=== PATIENT | male | born 1935 | race Caucasian/White ===

== ENCOUNTER 2018-03-05 14:14 | Emergency (ER) | payer BC, OTHER ==
--- NOTE | 2018-03-05 14:44 | CPEKG ---
Heart Rate: 61 RR Interval: 984 P-R Interval: 184 QRSD Interval: 146 QT Interval: 480 QTC Interval: 484 P [place]: 61 QRS [place]: 269 T Wave [place]: 78 EKG Severity - ABNORMAL ECG - EKG Impression: A-V DUAL-PACED RHYTHM WITH SOME INHIBITION Electronically Signed By: Jin Sahu 05-Mar-2018 20:51:03
--- NOTE | 2018-03-05 15:03 | EDPHY ---
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 BPH - Social History Smoking Status: Never smoked Constitutional: Initial Vital Signs Temperature (C) 36.6 C 03/05/18 14:15 Heart Rate 72 03/05/18 14:15 Respiratory Rate 18 03/05/18 14:15 Blood Pressure 174/112 H 03/05/18 14:15 O2 Sat (%) 95 03/05/18 14:15 O2 Delivery Mode Room Air Allergies/Adverse Reactions: No Known Allergies Allergy (Unverified 03/05/18 14:24) Home Medications: Medication Instructions Recorded Tamsulosin HCl [Flomax 0.4 MG (*)] 0.4 mg PO 03/05/18 Medical Decision Making - Diagnostics Imaging Results: Imaging Impressions Head CT 03/05/18 14:55 Impression: 1. No acute intracranial findings. 2. Diffuse cerebral atrophy with periventricular and subcortical low attenuation consistent with chronic microvascular ischemic gliosis. 3. Posterior right frontal calcified extra-axial mass consistent with a meningioma. Findings discussed with Dr. Jin Sahu on March 05, 2018 at 1627 hours. Head CTA 03/05/18 14:55 Impression: 1. 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 2. Mild to moderate atherosclerosis of the left carotid bifurcation without significant stenosis. 3. Posterior right frontal meningioma without significant mass effect with underlying atrophy. 4. Additional findings as above. Stenoses are calculated using [place] Symptomatic Carotid Endarterectomy Trial (NASCET) criteria. Neck CTA 03/05/18 14:55 Impression: 1. 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 2. Mild to moderate atherosclerosis of the left carotid bifurcation without significant stenosis. 3. Posterior right frontal meningioma without significant mass effect with underlying atrophy. 4. Additional findings as above. Stenoses are calculated using [place] Symptomatic Carotid Endarterectomy Trial (NASCET) criteria. 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 He also has a bovine heart valve. This patient has refused anticoagulation and antiplatelet medicine for several years. This patient states that recently had a workup and was found to have a 70% stenosis in 1 of his carotid arteries which he thinks is on the left. The other 1 is 30% stenosis. His doctor thought that most likely he was initiating a plaque from the carotid arteries. He also is AV paced. This patient is always somewhat off balance but over the last 2 days since he has arrived from [facility] he has been more off balance and more dizzy and weak. He also noticed that his blood pressure is a little bit higher than usual. He denies a headache. But he states that he has been labile emotionally and has been crying for no reason. REVIEW OF SYSTEMS: A 10 point review of systems was performed and is negative with the exception of the elements mentioned in the history of present illness. PHYSICAL EXAM: HR, BP, O2 Sat, RR. Temp noted General Appearance: Alert, well hydrated, appropriate, and non-toxic appearing. Head: Atraumatic without scalp tenderness or obvious injury Eyes: Pupils equal, round, reactive to light and accommodation, EOMI, no trauma , no injection. Ears: Clear bilaterally, no perforation, normal landmarks Nose: Atraumatic, no rhinorrhea, clear. Throat: There is no erythema or exudates, no lesions, normal tonsils, mucus membranes moist. Neck: Supple, 2+ carotid upstroke, nontender, no lymphadenopathy. Respiratory: No retractions, no distress, no wheezes, and no accessory muscle use. Lungs are clear to auscultation bilaterally. Cardiovascular: Regular rate and rhythm, no murmurs, rubs, or gallops. Bilateral carotid, radial, dorsalis pedis, and posterior tibial pulses intact. Good capillary refill all extremities. Gastrointestinal: Abdomen is soft, nontender, non-distended, no masses, no rebound, no guarding, no peritoneal signs. Musculoskeletal: Normal active ROM of all extremities, atraumatic. Neurological: Alert, appropriate, and interactive. The patient has normal DTRs and non-focal cranial nerves, motor, sensory, and patient feels like it is mostly normal since he is usually off balance but he always uses walking assistance. Skin: No rashes, good turgor, no nodules on palpation. 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 Denies tobacco use. Retired. DIAGNOSTICS/PROCEDURES/CRITICAL CARE TIME: The 12 lead EKG was interpreted by myself. See hard copy and/or "tracemaster" electronic copy for interpretation. AV paced rhythm. Study: CT of the brain without, CT angiography head and neck Indication: Stroke-like symptoms in a patient who has a pacemaker Results: CT scan of the body parts was obtained. The results of the study are normal on CT. CTA shows that he is congenitally missing his right internal carotid artery. He has plaques in his posterior bilateral arteries and anterior right artery. The study was read by the radiologist, Dr. Parada. DIFFERENTIAL DIAGNOSIS: The differential diagnosis for the patient's neurologic deficits included but was not limited to peripheral causes, central causes including CVA, TIA, electrolyte abnormalities and dehydration, cardiogenic causes, atypical causes like migraine syndrome. MEDICAL DECISION MAKING: I am significantly concerned that this patient has had another TIA or stroke in the cerebellar area. He has had some dizziness. In addition he has had some trouble recently with transient blindness and his doctor attributed the blindness to a TIA from his carotid plaques. Additionally , he has a heart valve and he is not anticoagulated nor is he on antiplatelet agents. At the patient's choice. CT scan laboratory studies are pending including electrolytes and urinalysis to rule out other causes of dizziness. This patient's symptom exacerbation beyond his usual balance symptoms including most recent dizziness has been present for at least 2 days if not longer when he is back in [place]. 3:30 PM - The urinalysis is not indicative of an infection. Labs are not indicative of an electrolyte abnormality or other source for the patient's symptoms. The patient's POC creatinine is within the normal range. CT angiography will also be performed for further evaluation of the symptoms. 5:00 PM - Due to his congenitally missing right carotid artery and plaque build up in remaining arteries he shoulder be anticoagulated. Likely he is currently having a TIA. I reassessed the patient and informed him of the results of the workup. I advise admission but he adamantly refused, stating he has had this workup before and will not start taking medication. 5:15 PM - I spoke with the patient's physician at [facility], Dr. Jo Rausch , regarding this patient. He agrees the patient should be taking at least an aspirin a day and should be admitted for further workup. I relayed this information to the patient who continues to refuse admission but agreed to take a single aspirin a day. - Data Points Laboratory Results: Laboratory Results 03/05/18 15:10 03/05/18 15:10 03/05/18 03/05/18 03/05/18 15:20 15:19 15:10 WBC RBC Hgb POC Hgb 13.3 gm/dL L gm/dL (13.7-17.5) Hct POC Hct 39 % L % (40-51) MCV MCH MCHC RDW Plt Count MPV Neut % (Auto) Lymph % (Auto) [place] % (Auto) Eos % (Auto) Baso % (Auto) Nucleat RBC Rel Count Absolute Neuts (auto) Absolute Lymphs (auto) Absolute Monos (auto) Absolute Eos (auto) Absolute Basos (auto) Absolute Nucleated RBC Immature Gran % Immature Gran # POC Sodium 139 mEq/L mEq/L (135-145) Sodium 141 mEq/L mEq/L (135-145) POC Potassium 4.4 mEq/L mEq/L (3.3-5.0) Potassium 4.7 mEq/L mEq/L (3.3-5.0) POC Chloride 101 mEq/L mEq/L (97-110) Chloride 103 mEq/L mEq/L (97-110) Carbon Dioxide 26 mEq/l mEq/l (22-31) Anion Gap 12 mEq/L mEq/L (8-16) POC BUN 18 mg/dL mg/dL (7-23) BUN 19 mg/dL mg/dL (7-23) Creatinine 1.0 mg/dL mg/dL (0.7-1.3) POC Creatinine 1.2 mg/dL mg/dL (0.7-1.3) Estimated GFR > 60 Glucose 83 mg/dL mg/dL (70-100) POC Glucose 91 mg/dL mg/dL (70-100) Calcium 10.0 mg/dL mg/dL (8.5-10.4) Urine Color PALE YELLOW Urine Appearance CLEAR Urine pH 7.0 (5.0-7.5) Ur Specific [place] 1.004 (1.002-1.030) Urine Protein NEGATIVE (NEGATIVE) Urine Ketones NEGATIVE (NEGATIVE) Urine Blood NEGATIVE (NEGATIVE) Urine Nitrate NEGATIVE (NEGATIVE) Urine Bilirubin NEGATIVE (NEGATIVE) Urine Urobilinogen NEGATIVE EU EU (0.2-1.0) Ur Leukocyte Esterase NEGATIVE (NEGATIVE) Urine RBC 1-3 /hpf /hpf (0-3) Urine WBC 1-3 /hpf /hpf (0-3) Ur Epithelial Cells NONE SEEN /lpf /lpf (NONE-1+) Urine Mucus TRACE /lpf /lpf (NONE-1+) Urine Glucose NEGATIVE (NEGATIVE) 03/05/18 15:10 WBC 4.63 10^3/uL 10^3/uL (3.80-9.50) RBC 4.02 10^6/uL L 10^6/uL (4.40-6.38) Hgb 12.8 g/dL L g/dL (13.7-17.5) POC Hgb Hct 39.5 % L % (40.0-51.0) POC Hct MCV 98.3 fL fL (81.5-99.8) MCH 31.8 pg pg (27.9-34.1) MCHC 32.4 g/dL g/dL (32.4-36.7) RDW 14.8 % % (11.5-15.2) Plt Count 168 10^3/uL 10^3/uL (150-400) MPV 11.5 fL fL (8.7-11.7) Neut % (Auto) 54.9 % % (39.3-74.2) Lymph % (Auto) 35.2 % % (15.0-45.0) [place] % (Auto) 7.8 % % (4.5-13.0) Eos % (Auto) 1.3 % % (0.6-7.6) Baso % (Auto) 0.6 % % (0.3-1.7) Nucleat RBC Rel Count 0.0 % % (0.0-0.2) Absolute Neuts (auto) 2.54 10^3/uL 10^3/uL (1.70-6.50) Absolute Lymphs (auto) 1.63 10^3/uL 10^3/uL (1.00-3.00) Absolute Monos (auto) 0.36 10^3/uL 10^3/uL (0.30-0.80) Absolute Eos (auto) 0.06 10^3/uL 10^3/uL (0.03-0.40) Absolute Basos (auto) 0.03 10^3/uL 10^3/uL (0.02-0.10) Absolute Nucleated RBC 0.00 10^3/uL 10^3/uL (0-0.01) Immature Gran % 0.2 % % (0.0-1.1) Immature Gran # 0.01 10^3/uL 10^3/uL (0.00-0.10) POC Sodium Sodium POC Potassium Potassium POC Chloride Chloride Carbon Dioxide Anion Gap POC BUN BUN Creatinine POC Creatinine Estimated GFR Glucose POC Glucose Calcium Urine Color Urine Appearance Urine pH Ur Specific [place] Urine Protein Urine Ketones Urine Blood Urine Nitrate Urine Bilirubin Urine Urobilinogen Ur Leukocyte Esterase Urine RBC Urine WBC Ur Epithelial Cells Urine Mucus Urine Glucose Point of Care Test Results: Chemistry 03/05/18 15:19 POC Sodium 139 mEq/L mEq/L (135-145) POC Potassium 4.4 mEq/L mEq/L (3.3-5.0) POC Chloride 101 mEq/L mEq/L (97-110) POC BUN 18 mg/dL mg/dL (7-23) POC Creatinine 1.2 mg/dL mg/dL (0.7-1.3) POC Glucose 91 mg/dL mg/dL (70-100) ISTAT H&H 03/05/18 15:19 POC Hgb 13.3 gm/dL L gm/dL (13.7-17.5) POC Hct 39 % L % (40-51) Departure - Departure Disposition: Home, Routine, Self-Care Clinical Impression: TIA (transient ischemic attack) Qualifiers: Transient cerebral ischemia type: other Qualified Code(s): G45.8 - Other transient cerebral ischemic attacks and related syndromes Condition: Fair Instructions: Transient Ischemic Attack (ED) Additional Instructions: 1. Please take 1 aspirin each day. 2. Follow-up with your primary care provider regarding this visit. 3. Return to the emergency department for one-sided weakness, vision loss, severe headache, or any other worsening of condition. Referrals: Palmer Jenkins MD [Medical Doctor] - As per Instructions Report Scribed for: Jin Sahu Report Scribed by: Chary Estrada Date of Report: 03/05/18 Time of Report: 17:01
[2018-03-05 15:33] LABS: PLATELET COUNT 168 10^3/uL (150-400)
[2018-03-05] MEDS ORDERED: IOPAMIDOL (ISOVUE 370) 100 ML BTL IV ONE (15:44)
[2018-03-05] MEDS ORDERED: ASPIRIN EC 325 MG TAB PO ONE (17:31)
[2018-03-05 17:55] VITALS: BP 158/86
== END 2018-03-05 17:58 | disposition home or self-care (01) ==
DX: G45.8 Other transient cerebral ischemic attacks and related syndromes (principal)
CPT/HCPCS: 82435-PO; 82565-PO; 82947-PO; 84132-PO; 84295-PO; 84520-PO; 85014-PO; Q9967